=== PATIENT | female | born 1945 | race Hispanic/Latino ===

== ENCOUNTER 2019-06-07 21:55 | Emergency (ER) | payer MEDICARE ==
[~2019-06-07 21:55] MED LIST: CHLORTHALIDONE PO; DICY20TA11 PO; LEVO75TA10 PO; LOSA100T58 PO; METOPROLOL ER PO; MONT10TA24 PO; OMEP20CA12 PO; PROVENTIL HFA IH
[2019-06-07 22:54] LABS: BASOPHILS % (AUTO) 0.2 % (0.0-5.0); EOSINOPHILS % (AUTO) 0.1 % (0.0-8.0); HEMATOCRIT 31.8 % (36-48); LYMPHOCYTES % (AUTO) 23.6 % (21.0-51.0); MEAN CORPUSCULAR HGB CONC 32.4 g/dL (32.0-36.0); MEAN CORPUSCULAR VOLUME 83.5 fL (79-99); MONOCYTES % (AUTO) 5.6 % (3.0-13.0); NEUTROPHILS % (AUTO) 70.2 % (40.0-77.0); PLATELET COUNT (AUTO) 190 K/uL (130-400); RED BLOOD CELL COUNT(AUTO) 3.81 MIL/uL (4.00-5.50); RED CELL DISTRIBUTION WIDTH 14.1 % (11.0-15.5)
[2019-06-07] MEDS ORDERED: KETOROLAC TROMETHAMINE 30MG/ML ONE (23:06)
[2019-06-07] MEDS ORDERED: ORPHENADRINE CITRATE 30 MG/ML ML ONE (23:06)
[2019-06-07] MEDS ORDERED: LIDOCAINE 5% TOPICAL PATCH TP ONE (23:06)
[2019-06-07 23:07] LABS: CREATININE 0.8 mg/dL (0.5-1.5); POTASSIUM 3.4 mmol/L (3.5-5.1)
[2019-06-07 23:12] LABS: ALBUMIN 3.4 g/dL (3.5-5.0); BILIRUBIN,TOTAL 0.6 mg/dL (0.2-1.0); TOTAL PROTEIN, SERUM 7.2 g/dL (6.0-8.3)
[2019-06-07 23:49] LABS: APPEARANCE,URINE Clear (CLEAR); BILIRUBIN,URINE Negative (NEGATIVE); COLOR,URINE Yellow (YELLOW); GLUCOSE, URINE (UA) Negative (NEGATIVE); KETONES,URINE Negative (NEGATIVE); LEUKOCYTE ESTERASE ,URINE Trace (NEGATIVE); NITRATE,URINE Negative (NEGATIVE); OCCULT BLOOD,URINE Negative (NEGATIVE); PH,URINE 6.5 (5.0-8.0); PROTEIN,URINE Negative (NEGATIVE); UROBILINOGEN,URINE 0.2 mg/dL (0.2-1.0)
[2019-06-08 00:18] LABS: BACTERIA,URINE None Seen /HPF (None Seen); RBC,URINE 0-1 /HPF (0-1); WBC,URINE None Seen /HPF (0-1)
== END 2019-06-08 00:57 | disposition home or self-care (01) ==
LOC: EDH 21:55
DX: M54.6 Pain in thoracic spine (principal); M62.838 Other muscle spasm; R05 Cough; R35.0 Frequency of micturition; R63.0 Anorexia; J45.909 Unspecified asthma, uncomplicated; I10 Essential (primary) hypertension; Z90.710 Acquired absence of both cervix and uterus; Z91.041 Radiographic dye allergy status
CPT/HCPCS: 36415; 71046; 80053; 81001; 85025; 96372 ×2; 99285; J1885; J2360

== ENCOUNTER 2021-07-09 23:51 | Emergency (ER) | payer MEDICARE ==
[~2021-07-09] VITALS: Ht 154.9 cm; Wt 83.0 kg
[~2021-07-09 23:51] MED LIST changes: -DICY20TA11 PO; +DICY20TA3 PO; +MONT-39 PO; -MONT10TA24 PO
[2021-07-10 02:00] VITALS: BP 137/61
== END 2021-07-10 02:15 | disposition home or self-care (01) ==
LOC: EDH 23:51
DX: S00.83XA Contusion of other part of head, initial encounter (principal); J45.909 Unspecified asthma, uncomplicated; I10 Essential (primary) hypertension; E03.9 Hypothyroidism, unspecified; Z90.710 Acquired absence of both cervix and uterus; Z91.041 Radiographic dye allergy status; Z79.899 Other long term (current) drug therapy; W18.39XA Other fall on same level, initial encounter; Y93.89 Activity, other specified; Y92.89 Other specified places as the place of occurrence of the external cause; Y99.8 Other external cause status
CPT/HCPCS: 70450

== ENCOUNTER 2022-02-19 12:58 | Emergency (ER) | payer MEDICARE ==
[~2022-02-19] VITALS: Ht 152.4 cm; Wt 75.7 kg
[2022-02-19 13:55] LABS: BASOPHILS % (AUTO) 0.1 % (0.0-5.0); HEMATOCRIT 28.3 % (36-48); LYMPHOCYTES % (AUTO) 8.4 % (21.0-51.0); MEAN CORPUSCULAR HEMOGLOBIN 28.2 pg (27.0-33.0); MEAN CORPUSCULAR HGB CONC 34.6 g/dL (32.0-36.0); MEAN CORPUSCULAR VOLUME 81.6 fL (79-99); MONOCYTES % (AUTO) 3.5 % (3.0-13.0); NEUTROPHILS % (AUTO) 87.7 % (40.0-77.0); PLATELET COUNT (AUTO) 199 K/uL (130-400); RED BLOOD CELL COUNT(AUTO) 3.47 MIL/uL (4.00-5.50); RED CELL DISTRIBUTION WIDTH 13.2 % (11.0-15.5); WHITE BLOOD COUNT (AUTO) 9.2 K/uL (4.8-10.8)
[2022-02-19 14:18] LABS: ALBUMIN 3.6 g/dL (3.5-5.0); CREATININE 0.7 mg/dL (0.5-1.5); POTASSIUM 3.8 mmol/L (3.5-5.1); TOTAL PROTEIN, SERUM 7.2 g/dL (6.0-8.3)
[2022-02-19 14:30] LABS: B-TYPE NATRIURETIC PEPTIDE 100 pg/mL (0-100)
[2022-02-19 14:36] LABS: APPEARANCE,URINE CLEAR (CLEAR); BACTERIA,URINE RARE /HPF (None Seen); BILIRUBIN,URINE NEGATIVE (NEGATIVE); COLOR,URINE LIGHT-YELLOW (YELLOW); GLUCOSE, URINE (UA) NEGATIVE (NEGATIVE); KETONES,URINE NEGATIVE (NEGATIVE); LEUKOCYTE ESTERASE ,URINE NEGATIVE Leu/uL (NEGATIVE); NITRATE,URINE NEGATIVE (NEGATIVE); OCCULT BLOOD,URINE NEGATIVE (NEGATIVE); PH,URINE 7.5 (5.0-8.0); PROTEIN,URINE NEGATIVE (NEGATIVE); SQUAMOUS EPITHELIAL CELL,UR RARE /HPF (0-2); UROBILINOGEN,URINE 0.2 mg/dL (0.2-1.0); WBC,URINE 0-1 /HPF (0-1)
[2022-02-19] MEDS ORDERED: 0.9%NACL 1000ML 1,000 ML IV ONE (15:00)
[2022-02-19] MEDS ORDERED: MECLIZINE HCL 25 MG TABLET PO STA (15:21)
[2022-02-19 16:00] VITALS: BP 148/53
[2022-02-19] MEDS ORDERED: DICL20GE TP (16:15)
[2022-02-19] MEDS ORDERED: MECL-262 PO (16:15)
[2022-02-19] MEDS ORDERED: FLUT16H NASAL (16:15)
== END 2022-02-19 16:28 | disposition home or self-care (01) ==
LOC: EDH 12:58
DX: R42 Dizziness and giddiness (principal); J32.9 Chronic sinusitis, unspecified; M79.10 Myalgia, unspecified site; J45.909 Unspecified asthma, uncomplicated; K21.9 Gastro-esophageal reflux disease without esophagitis; I10 Essential (primary) hypertension; Z88.8 Allergy status to other drugs, medicaments and biological substances; Z79.899 Other long term (current) drug therapy; Z98.890 Other specified postprocedural states
CPT/HCPCS: 99285; 96360; 71045; 84484; 80053; 83880; 85025; 81001; 36415; 93005; J7030

== ENCOUNTER 2023-07-22 06:09 | Day surgery (SDC) | payer MEDICARE ==
[2023-07-18 11:40] LABS: BASOPHILS # (AUTO) 0.02 K/uL (0.00-0.20); BASOPHILS % (AUTO) 0.2 % (0.0-5.0); HEMATOCRIT 33.6 % (36-48); IMMATURE GRANULOCYTE ABSOLUTE 0.03 K/uL (0-1); LYMPHOCYTES # (AUTO) 1.9 K/uL (1.0-4.8); LYMPHOCYTES % (AUTO) 22.2 % (21.0-51.0); MEAN CORPUSCULAR HEMOGLOBIN 28.8 pg (27.0-33.0); MEAN CORPUSCULAR HGB CONC 33.6 g/dL (32.0-36.0); MEAN CORPUSCULAR VOLUME 85.7 fL (79-99); MONOCYTES # (AUTO) 0.6 K/uL (0.1-1.0); MONOCYTES % (AUTO) 6.8 % (3.0-13.0); NEUTROPHILS % (AUTO) 70.4 % (40.0-77.0); PLATELET COUNT (AUTO) 166 K/uL (130-400); RED BLOOD CELL COUNT(AUTO) 3.92 MIL/uL (4.00-5.50); RED CELL DISTRIBUTION WIDTH 13.6 % (11.0-15.5); WHITE BLOOD COUNT (AUTO) 8.6 K/uL (4.8-10.8)
[2023-07-18 11:45] VITALS: BP 137/67; PULSE 65; RESP 16
[2023-07-18 13:38] LABS: ALBUMIN 3.7 g/dL (3.5-5.0); BILIRUBIN,TOTAL 0.6 mg/dL (0.2-1.0); CREATININE 0.8 mg/dL (0.5-1.5); POTASSIUM 3.9 mmol/L (3.5-5.1); TOTAL PROTEIN, SERUM 7.4 g/dL (6.0-8.3)
[~2023-07-22] VITALS: Ht 152.4 cm; Wt 71.2 kg
[2023-07-22] VITALS (14 sets, daily range): BP systolic 99–132; BP diastolic 40–60; PULSE 59–66; RESP 12–20
[~2023-07-22 06:09] MED LIST changes: +ALBU6.7H14 IH; +AMLO-258 PO; -CHLORTHALIDONE PO; -DICY20TA3 PO; -LOSA100T58 PO; +LOSA100T59 PO; -MONT-39 PO; -OMEP20CA12 PO; -PROVENTIL HFA IH; +ROSU10TA28 PO
[2023-07-22] MEDS: LACTATED RINGERS 1000ML 1,000 ML IV ONE (06:20)
[2023-07-22] MEDS ORDERED: PROPOFOL 10 MG/ML 20ML VIAL IV ONE (07:13)
[2023-07-22] MEDS ORDERED: LIDOCAINE PF 100MG/5ML (2%) SYRINGE 5ML ONE (07:13)
[2023-07-22] MEDS ORDERED: ROCURONIUM BROMIDE 10MG/1ML 5ML VL ONE ×2 (07:14→08:59)
[2023-07-22] MEDS ORDERED: MIDAZOLAM HCL 1 MG/ML 2ML VIAL ONE (07:14)
[2023-07-22] MEDS ORDERED: FENTANYL CITRATE PF 50 MCG/1 ML 2ML VIAL ONE (07:14)
[2023-07-22] MEDS ORDERED: BUPIVACAINE/PF 0.25% 30ML VIAL IJ ONE (07:20)
[2023-07-22] MEDS ORDERED: ROPIVACAINE 0.5% 5MG/ML 30ML ONE (07:21)
[2023-07-22] MEDS ORDERED: DEXAMETHASONE SOD PHOSPHATE 10MG/ML 1ML VIAL ONE (07:22)
[2023-07-22] MEDS ORDERED: ONDANSETRON 4MG INJ ONE (07:22)
[2023-07-22] MEDS: CEFAZOLIN SODIUM 2 GM VIAL ONE (08:10)
[2023-07-22] MEDS ORDERED: NEOSTIGMINE METHYLSULFATE 1MG/ML IV ONE (08:47)
[2023-07-22] MEDS ORDERED: PHENYLEPHRINE HCL 10 MG/ML 1ML VIAL IV ONE (08:47)
[2023-07-22] MEDS ORDERED: GLYCOPYRROLATE 0.2 MG/ML 5 ML VIAL ONE (08:47)
[2023-07-22] MEDS: IOHEXOL-350 50ML VIAL IV ONE (09:15)
[2023-07-22] MEDS ORDERED: KETOROLAC 30MG VIAL (30MG/ML) ONE (09:37)
== END 2023-07-22 12:00 | disposition home or self-care (01) ==
LOC: DAH 06:09
PROVIDERS: ATTEND Surgery
DX: K80.10 Calculus of gallbladder with chronic cholecystitis without obstruction (principal); K82.8 Other specified diseases of gallbladder; K42.0 Umbilical hernia with obstruction, without gangrene; J45.909 Unspecified asthma, uncomplicated; I10 Essential (primary) hypertension; E03.9 Hypothyroidism, unspecified; Z90.710 Acquired absence of both cervix and uterus; Z88.3 Allergy status to other anti-infective agents; Z79.890 Hormone replacement therapy; Z79.899 Other long term (current) drug therapy
CPT/HCPCS: 80053; 85025; 86850 ×2; 86900 ×2; 86901 ×2; 36415 ×2; 93005; 49592; 64488; 47563; 88304; 74300; A6260; A4663; J7030; A4215 ×2; C1758; J7120; J3010; J1100; J3490 ×3; J2001; J2250; J2704; J2405; J1885; J2710; J2795; J2371; Q9967; J0690; C1769 ×3; A4649 ×2; A4223; A4222; A4221; A4600; G0168; J0665